=== PATIENT | female | born 1950 | race Caucasian/White ===

== ENCOUNTER → 2018-03-09 | Day surgery (SDC) | payer MEDICARE, BC ==
[~2018-03-09] MED LIST: Lactated Ringers 1,000 ML IV SCH; Propofol 200 MG/20 ML SDV IV ONE
[2018-03-09 10:26] VITALS: BP 114/69
--- NOTE | 2018-03-09 11:44 | OR ---
DATE OF OPERATION: 03/09/2018 PREOPERATIVE DIAGNOSIS: FOLLOW UP POLYPS. POSTOPERATIVE DIAGNOSIS: FOLLOW UP POLYPS. SURGEON: Lei Mack MD PROCEDURE: FULL-LENGTH COLONOSCOPY. 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 COMPLICATIONS: None. SPECIMEN: None. FINDINGS: 1. Full-length colonoscopy. 2. Minimal sigmoid diverticulosis. RECOMMENDATIONS: Follow up colonoscopy in 10 years. INDICATIONS: Mrs. Austin has prior history of polyp removal. She is due for followup scope. PROCEDURE: The patient was prepped and draped, placed in the left lateral decubitus position. A lubricated olympus colonoscope was inserted and easily advanced to the cecum. Direct visualization of the ileocecal valve and appendiceal orifice was accomplished. Bowel prep was fine. Upon withdrawal of the scope, the right transverse and descending colons were completely benign. The sigmoid colon had a few scattered diverticula, but very minimal. No signs of any polyps, mass, ulceration, or bleeding sites. No vascular abnormalities or signs of colitis. The rectal vault was benign. Retroflexion showed no perianal lesions. Air was suctioned and the scope removed without complication. AVIS/DENISE /[id number]
== END ==
LOC: CC.SDS 08:21
PROVIDERS: ATTEND Family Medicine
DX: Z12.11 Encounter for screening for malignant neoplasm of colon (principal); K57.30 Diverticulosis of large intestine without perforation or abscess without bleeding; Z86.010 Personal history of colon polyps; E78.5 Hyperlipidemia, unspecified; K21.9 Gastro-esophageal reflux disease without esophagitis; F32.9 Major depressive disorder, single episode, unspecified; Z87.891 Personal history of nicotine dependence; Z79.82 Long term (current) use of aspirin; Z79.899 Other long term (current) drug therapy; Z88.1 Allergy status to other antibiotic agents; Z88.0 Allergy status to penicillin; Z88.8 Allergy status to other drugs, medicaments and biological substances; Z91.048 Other nonmedicinal substance allergy status
CPT/HCPCS: J2704; J7120